=== PATIENT | female | born 1940 | race Caucasian/White ===

== ENCOUNTER 2022-07-09 10:55 | Emergency (ER) | payer MEDICARE, OTHER, SELFPAY ==
[2022-07-09 11:11] VITALS: BP 156/79; PULSE 88; RESP 15; TEMP 36.7; O2SAT 98; BMI 25.3
[2022-07-09 11:46] LABS: Bacteria Urine Few (2-10); Culture Indicated Urine Specimen Cultured; RBC Urine 0-1/HPF (0-5/HPF); Squamous Epithelial Cell Urine 0-1 /HPF (0-5/HPF); WBC Urine 10-30/HPF (0-5/HPF)
--- NOTE | 2022-07-09 14:33 | ED.FEMALEGU ---
HPI - Female Genitourinary <SURY Motley - Last Filed: 07/09/22 14:36> General Chief complaint: Urogenital-Female Stated complaint: Possible UTI Time Seen by Provider: 07/09/22 14:23 Source: patient Mode of arrival: Ambulatory History of Present Illness HPI Narrative: This is an 82-year-old female who is visiting her son from [facility] and presents to the emergency department with 5-7 days of dysuria, urinary frequency and urgency and states that her symptoms improved on azo and with hydration but came back and has been worse for the last 2-3 days. She has an allergy to ibuprofen but states she is used Tylenol, states that she has had increased frequency and pain are her primary symptoms. Denies fever, chills, abdominal pain, flank pain, back pain, vomiting or nausea. Tish she has history of cholecystectomy and appendectomy. Related Data Previous Rx's Medication Instructions Recorded cephalexin 500 mg capsule 500 mg PO BID 7 days #14 caps 07/09/22 phenazopyridine 100 mg tablet 100 mg PO QPC PRN pain 6 doses #7 07/09/22 (Pyridium) tabs Allergies Allergy/AdvReac Type Severity Reaction Status Date / Time ibuprofen [From Motrin] Allergy Verified 07/09/22 11:11 Review of Systems <SURY Motley - Last Filed: 07/09/22 14:36> Review of Systems ROS Unobtainable: All systems reviewed & are unremarkable except as noted in HPI and below Patient History <SURY Motley - Last Filed: 07/09/22 14:36> alcohol intake frequency: holidays/special occasions only Substance Use Type: does not use Exam <SURY Motley - Last Filed: 07/09/22 14:36> Narrative Exam Narrative: Reviewed vitals signs and nursing notes. Exam somewhat limited due to assessing patient in the waiting room afebrile General: cooperative, comfortable, in no acute distress, well groomed HEENT: symmetrical facial expressions, moist mucous membranes GI: abdomen soft, nontender to palpation, nondistended, without masses, rebound tenderness or exquisite tenderness with exam. Without CVAT bilaterally MSK: moves all extremities, neurovascularly intact, no weakness, normal tone Skin: brisk capillary refill, without pallor or erythema Neuro: normal speech and cognition, A&O x3, ambulatory, clear speech Psych: mental status is grossly normal, congruent mood, normal affect, pleasant and cooperative Initial Vital Signs Initial Vital Signs: Vital Signs Temperature 98.1 F 07/09/22 11:11 Pulse Rate 88 07/09/22 11:11 Respiratory Rate 15 07/09/22 11:11 Blood Pressure 156/79 H 07/09/22 11:11 Pulse Oximetry 98 07/09/22 11:11 Oxygen Delivery Method 07/09/22 11:11 <Lauren Cordova DO - Last Filed: 07/12/22 07:20> Initial Vital Signs Initial Vital Signs: Vital Signs Temperature 98.1 F 07/09/22 11:11 Pulse Rate 88 07/09/22 11:11 Respiratory Rate 15 07/09/22 11:11 Blood Pressure 156/79 H 07/09/22 11:11 Pulse Oximetry 98 07/09/22 11:11 Oxygen Delivery Method 07/09/22 11:11 Course <SURY Motley - Last Filed: 07/09/22 14:36> Orders Ordered: ED Orders 07/09/22 11:15 Urine Culture Stat Urine Microscopic Stat Vital Signs Vital signs: Vital Signs - 8 hr 07/09/22 11:11 Temperature 98.1 F Pulse Rate 88 Respiratory Rate 15 Blood Pressure 156/79 H Pulse Oximetry 98 Oxygen Delivery Method Room Air <Lauren Cordova DO - Last Filed: 07/12/22 07:20> Orders Ordered: ED Orders 07/09/22 11:15 Urine Culture Stat Urine Microscopic Stat Vital Signs Vital signs: Vital Signs - 8 hr 07/09/22 11:11 Temperature 98.1 F Pulse Rate 88 Respiratory Rate 15 Blood Pressure 156/79 H Pulse Oximetry 98 Oxygen Delivery Method Room Air MDM - Female Genitourinary <SURY Motley - Last Filed: 07/09/22 14:36> Lab Data Labs: Lab Results 07/09/22 Range/Units 11:15 Urine RBC 0-1/hpf (0-5/HPF) Urine WBC 10-30/hpf H (0-5/HPF) Ur Squamous Epith Cells 0-1 /hpf (0-5/HPF) Urine Bacteria Few (2-10) H (None) Ur Culture Indicated? Specimen cultured Urine Dip Bedside Urine Glucose Negative Bedside Urine Bilirubin - Negative Bedside Urine Ketone - Negative Urine Specific [place] 1.015 Bedside Urine Occult Blood +/- Bedside Urine pH 6.0 Bedside Urine Protein - Negative Bedside Urine Urobilinogen - Negative Bedside Urine Nitrite - Negative Bedside Urine Leukocytes ++ 125 Esterase MDM Narrative Medical decision making narrative: This patient presents with symptoms consistent with acute uncomplicated urinary tract infection, without prior history of urinary tract infections. Has not had recent antibiotics. Is traveling and visiting her son. Well-appearing without fever or systemic symptoms. Low suspicion for acute pyelonephritis given lack of fever, CVAT, or systemic features. Low suspicion for ureteral/kidney stone or infected stone. Differential diagnosis include torsion, malignancy, contact dermatitis, interstitial cystitis, dehydration, atrophic vaginitis. Will follow urine culture results, encouraged tylenol/motrin for pain, hydration, and recheck with primary care provider if not improving within 2 days, and return to the emergency department for worsening symptoms, vomiting, fever and chills. Treated patient with cephalexin she has no prior history UTIs. Patient is appropriate and amenable to discharge home. Vital signs are stable on repeat examination is unremarkable. Patient has been informed of results. Patient has been given strict return to ER precautions for any new or worsening symptoms. Patient understands to follow up closely with outpatient providers as instructed. Patient understands plan and agrees to discharge home. All questions and concerns answered at this time. <Lauren Cordova, - Last Filed: 07/12/22 07:20> Lab Data Labs: Lab Results 07/09/22 Range/Units 11:15 Urine RBC 0-1/hpf (0-5/HPF) Urine WBC 10-30/hpf H (0-5/HPF) Ur Squamous Epith Cells 0-1 /hpf (0-5/HPF) Urine Bacteria Few (2-10) H (None) Ur Culture Indicated? Specimen cultured Urine Dip Bedside Urine Glucose Negative Bedside Urine Bilirubin - Negative Bedside Urine Ketone - Negative Urine Specific [place] 1.015 Bedside Urine Occult Blood +/- Bedside Urine pH 6.0 Bedside Urine Protein - Negative Bedside Urine Urobilinogen - Negative Bedside Urine Nitrite - Negative Bedside Urine Leukocytes ++ 125 Esterase Discharge Plan Departure Patient Disposition: Home Clinical Impression: Urinary tract infection Instructions: Urinary Tract Infection Activity Restrictions/Additional Instructions: *You have been diagnosed with a uncomplicated urinary tract infection. Please use Tylenol 650 mg every 6 hours as needed for pain, stay hydrated but do not drink too much water. Use Pyridium every 8 hours as needed for burning sensation. Please take 2 doses of this medication each day for the next 7 days. Return for any new or worsening symptoms. I hope you feel better soon, it was a pleasure to meet you. Please also return if you start vomiting or develop fever and chills. *What to do: *Please continue to take your regular medications as directed. [ x] New medication prescriptions sent to your pharmacy: [[facility] ] [ ] New medication written as a paper prescription [ ] No new medications given *Please follow up with your primary care provider in 2-3 days, call for an appointment. Let them know you were seen in the Emergency Department and that we asked that you be seen for follow-up. We will electronically transmit a record of today's note if your PCP is in our system *If you do not have a primary care provider please contact [phone] to establish care with one of the [facility] primary care providers. *Return to Emergency Department if you should have any new, worsening, or concerning symptoms, such as [fever greater than 101F, chills, worsening pain, persistent vomiting or other bothersome symptoms]. Prescriptions: New cephalexin 500 mg capsule 500 mg PO BID 7 Days Qty: 14 0RF phenazopyridine [Pyridium] 100 mg tablet 100 mg PO QPC PRN (Reason: pain) Qty: 7 0RF Stand Alone Forms: Patient Portal/API <Lauren Cordova, DO - Last Filed: 07/12/22 07:20> Cosign ED Attending Gabrielature Attestation: I was immediately available in the department for consultation. Documentation has been reviewed. I agree with assessment and plan.
== END 2022-07-09 14:30 | disposition home or self-care (01) ==
PROVIDERS: Emergency Medicine; Emergency Provider Nurse Practitioner Critical Care Medicine
DX: N39.0 Urinary tract infection, site not specified (principal)
CPT/HCPCS: 81003; 81015; 87077; 87086; 87186; 99281; 99282